=== PATIENT | male | born 1990 | race Caucasian/White ===

== ENCOUNTER 2016-09-08 07:18 | Emergency (ER) | payer OTHER ==
[~2016-09-08] VITALS: Ht 172.7 cm; Wt 47.9 kg
[2016-09-08 07:21] VITALS: BP 133/90
[2016-09-08] MEDS ORDERED: CLEOCIN300 MG PO (07:50)
== END 2016-09-08 08:04 | disposition home or self-care (01) ==
LOC: EME 07:18
DX: K05.10 Chronic gingivitis, plaque induced (principal); K04.7 Periapical abscess without sinus; K02.9 Dental caries, unspecified
CPT/HCPCS: 99281; 99283

== ENCOUNTER 2016-10-27 21:03 | Emergency (ER) | payer OTHER ==
[~2016-10-27] VITALS: Ht 170.2 cm; Wt 50.0 kg
[~2016-10-27 21:03] MED LIST: CLEOCIN300 MG PO
[2016-10-28] MEDS ORDERED: CLINDAMYCIN HC150 MG PO (14:34)
== END 2016-10-27 23:18 | disposition left against medical advice (07) ==
LOC: EME 21:03
DX: K08.89 Other specified disorders of teeth and supporting structures (principal); Z53.21 Procedure and treatment not carried out due to patient leaving prior to being seen by health care provider

== ENCOUNTER 2016-10-28 11:04 | Emergency (ER) | payer OTHER ==
[~2016-10-28] VITALS: Ht 172.7 cm; Wt 50.2 kg
[2016-10-28] MEDS ORDERED: CLINDAMYCIN HC150 MG PO (14:34)
[2016-10-28 14:47] VITALS: BP 128/69
== END 2016-10-28 14:47 | disposition home or self-care (01) ==
LOC: EME 11:04
DX: K04.7 Periapical abscess without sinus (principal); K02.9 Dental caries, unspecified
CPT/HCPCS: 99281; 99284

== ENCOUNTER 2017-02-16 02:33 | Emergency (ER) | payer OTHER ==
[~2017-02-16] VITALS: Ht 170.2 cm; Wt 52.3 kg
[~2017-02-16 02:33] MED LIST changes: +CLINDAMYCIN HC150 MG PO
[2017-02-16 02:51] LABS: EOSINOPHIL (%) 1.6 % (0-5); EOSINOPHIL COUNT 0.2 K/uL (0-0.3); IMMATURE GRANULOCYTE (%) 0.4 % (0.0-0.7); LYMPHOCYTE COUNT 3.1 K/uL (1.0-2.8); MCH 30.3 PG (29.0-34.0); MCHC 33.9 G/DL (30.0-36.0); MCV 89.5 FL (86-99); MEAN PLAT.VOLUME 11.1 uM^3 (9.0-12.4); MONOCYTE (%) 3.4 % (3-12); MONOCYTE COUNT 0.3 K/uL (0-0.8); NEUTROPHIL (%) 62.3 % (45-76); PLATELET COUNT 176 K/uL (156-360); RBC DIS.WIDTH-CV 12.5 % (11.8-14.6); RBC DIS.WIDTH-SD 41.1 % (39-53); RED BLOOD COUNT 4.58 M/uL (4.00-5.50); WHITE BLOOD COUNT 9.6 K/uL (4.1-10.2)
[2017-02-16 03:05] LABS: AMYLASE 32 IU/L (1-118); CHLORIDE 105 mEq/L (99-109); POTASSIUM 3.4 mEq/L (3.7-5.4); SODIUM 140 mEq/L (136-147)
[2017-02-16 03:06] LABS: GLUCOSE 141 mg/dL (70-99)
[2017-02-16 03:08] LABS: ANION GAP 10 MEQ/L (2-14)
[2017-02-16 03:10] LABS: GFR ESTIMATE (CALCULATED) > 59 mL/min/; SERUM ETHYL ALCOHOL < 10 mg/dL
[2017-02-16 03:11] LABS: UREA NITROGEN (BUN) 13 mg/dL (9-23)
[2017-02-16 03:13] LABS: LIPASE 18 U/L (1.0-51.0)
[2017-02-16 04:50] VITALS: BP 112/61
== END 2017-02-16 04:52 | disposition short-term general hospital (02) ==
LOC: EME → TRA 02:33 → EME 02:33 → TRA 02:33 → EDBD 02:33 → TRA 04:52
PROVIDERS: Emergency Medicine
DX: S02.81XA Fracture of other specified skull and facial bones, right side, initial encounter for closed fracture (principal); Y04.0XXA Assault by unarmed brawl or fight, initial encounter; Z88.0 Allergy status to penicillin; F17.200 Nicotine dependence, unspecified, uncomplicated; R11.2 Nausea with vomiting, unspecified
CPT/HCPCS: 70450; 70486; 71010; 72125; 80048; 81003; 82150; 83690; 85025; 86850; 86900; 86901; 93005; 99281; 99285; G0480; J0690; J2270; J2405; J3010; J7030